=== PATIENT | female | born 1970 | race Caucasian/White ===

== ENCOUNTER 2024-01-24 08:26 | Emergency (ER) | payer OTHER ==
--- OUTSIDE RECORDS SUMMARY | 2024-01-24 08:30 | XMS REPORT | Continuity of Care Document ---
Author Name Unknown Address [address] [facility] [address] [place] [address] [facility] thconnect Address [address] [facility] [address] [place] [address] Care Team Providers Care Special Inspector Name Role Phone ETELVINA KIMBALL Attending Clinician Unavailable Elsa Attending Clinician Unavailable ADI Attending Clinician Unavailable JENNIE PHAN Attending Clinician Unavailab ALIE Dominguez Attending Clinician Un available SORAIDA ARBOLEDA Attending Clinician Unavailable Saumya Attending Clinician Unavailable CAMILA CAVAZOS Attending Clinician Unavailable BRIEN CORBIN Attending Clinician Unavailable MARIO LI Attending Clinician Unavailable NIRALI ZALDIVAR Attending Clinician Unavail able ALEX LALA Attending Clinician Unavailable HARISH NEUMANN Attending Clinician Unavailable JOI PEREA Attending Clinician Unavailable WILBERTO PATEL Attending Clinician DENISHA Germain Attending Clinician Unavailable ANANT PEARCE Attending Clinician Unavailchapito Hunter Admitting Clinician Unavailable ADI Admitting Clinician Unavailable Kody_Humphrey Admitting Clinician Unavailable Payers Payer Name Policy Type Policy Number Effective Date Expirati on Date Source [facility] [id number] 2021 00:00:00 [employer] - DUAL COMPLETE (MEDICARE REPLACEMENT/ADVANTA GE - HMO) [id number] 2023 00:00:00 [employer] [id number] 2023 00:00:00 [facility] (MEDICAID HMO) [id number] 2015-07-25 00:00:00 Problems Condition Name Condition Details Condition Category Status Onset Date Resolution Date Last Treatment Date Treating Clinician Comments Source Hyperlipid emia Hyperlipid emia Problem Active 10-23 00:00: 00 [facility] Anemia Anemia Problem Active 10-23 00:00: 00 [facility] Hypertensi ve disorder Hypertensi ve Disorder Problem Active 10-23 00:00: 00 [facility] Hiatal hernia Hiatal Hernia Problem Active 10-23 00:00: 00 [facility] History of peptic ulcer History of Peptic Ulcer Problem Active 10-23 00:00: 00 [facility] Attention deficit hyperactiv ity disorder, predominan tly inattentiv e type Attention Deficit Hyperactiv ity Disorder, Predominan tly Inattentiv e Type Problem Active 10-23 00:00: [address] [facility] Chronic hepatitis C Chronic Hepatitis C Problem Active 10-23 00:00: [address] [facility] Hypoglycem ia Hypoglycem ia Problem Active 10-23 00:00: [address] [facility] History of adenomatou s polyp of colon History of Adenomatou s Polyp of Colon Problem Active 11-04 00:00: [address] [facility] Tinnitus Tinnitus Problem Active [facility] Scalp psoriasis Scalp Psoriasis Problem Active [facility] Chronic low back pain Chronic Low Back Pain Problem Active [facility] Dizziness Dizziness Problem Active [facility] Headache Headache Problem Active [facility] Dysuria Dysuria Problem Active [facility] Bipolar disorder Bipolar Disorder Problem Active [facility] Anxiety Anxiety Problem Active [facility] Attention deficit hyperactiv ity disorder Attention Deficit Hyperactiv ity Disorder [facility] Chronic mastoiditi s Chronic Mastoiditi s Problem [facility] Mastoiditi s Mastoiditi s Problem Active [facility] Perforatio n of tympanic membrane Perforatio n of Tympanic Membrane [facility] Social History Smoking Status Start Date Stop Date Source Current Every Day Smoker [facility] Heavy Tobacco [facility] Medications Ordered Medication Name Filled Medication Name Start Date Stop Date Current Medication? Ordering Clinician Indication Dosage Frequency Signature (SIG) Comments Components Source hydrocodone 10 mg-acetamin ophen 325 mg tablet hydrocodone 10 mg-acetamin ophen 325 mg tablet 12-25 00:00: 00 No hydrocodon e 10 mg-acetami nophen 325 mg tablet [facility] carisoprodo l 350 mg tablet carisoprodo l 350 mg tablet No carisoprod ol 350 mg tablet [facility] diazepam 10 mg tablet diazepam 10 mg tablet No diazepam 10 mg tablet [facility] Flonase Allergy Relief 50 mcg/actuati on nasal spray,suspe nsion [place] 1 spray every day by intranasal route. Flonase Allergy Relief 50 mcg/actuati on nasal spray,suspe nsion [place] 1 spray every day by intranasal route. No 1spray( s) Q1D Flonase Allergy Relief 50 mcg/actuat ion nasal spray,susp ension [place] 1 spray every day by intranasal route. [facility] pantoprazol e 40 mg tablet,edmond yed release pantoprazol e 40 mg tablet,edmond yed release No pantoprazo le 40 mg tablet,del ayed release [facility] propranolol 10 mg tablet TK 1 T PO BID propranolol 10 mg tablet TK 1 T PO BID No propranolo l 10 mg tablet TK 1 T PO BID [facility] venlafaxine ER 75 mg capsule,ext ended release 24 hr TK ONE C PO QD venlafaxine ER 75 mg capsule,ext ended release 24 hr TK ONE C PO QD No venlafaxin e ER 75 mg capsule,ex tended release 24 hr TK ONE C PO QD [facility] Adderall Adderall No Adderall [facility] fenofibrate 54 mg tablet TAKE 1 TABLET BY MOUTH EVERY DAY IN THE MORNING FOR 90 DAYS, FOR LIPIDS. fenofibrate 54 mg tablet TAKE 1 TABLET BY MOUTH EVERY DAY IN THE MORNING FOR 90 DAYS, FOR LIPIDS. No fenofibrat e 54 mg tablet TAKE 1 TABLET BY MOUTH EVERY DAY IN THE MORNING FOR 90 DAYS, FOR LIPIDS. [facility] hydrocodone 5 mg-acetamin ophen 325 mg tablet TAKE 1 TABLET BY MOUTH EVERY 12 HOURS NEEDED FOR 30 DAYS hydrocodone 5 mg-acetamin ophen 325 mg tablet TAKE 1 TABLET BY MOUTH EVERY 12 HOURS NEEDED FOR 30 DAYS No hydrocodon e 5 mg-acetami nophen 325 mg tablet TAKE 1 TABLET BY MOUTH EVERY 12 HOURS NEEDED FOR 30 DAYS [facility] pantoprazol e pantoprazol e No pantoprazo le [facility] Epclusa 400 mg-100 mg tablet Take 1 tablet every day by oral route for 28 days. Epclusa 400 mg-100 mg tablet Take 1 tablet every day by oral route for 28 days. No Epclusa 400 mg-100 mg tablet Take 1 tablet every day by oral route for 28 days. [facility] Mavyret 100 mg-40 mg tablet Take 3 tablets every day by oral route for 28 days. Mavyret 100 mg-40 mg tablet Take 3 tablets every day by oral route for 28 days. No 3 Q1D Mavyret 100 mg-40 mg tablet Take 3 tablets every day by oral route for 28 days. [facility] Vital Signs Vital Name Observation Time Observation Value Comments S ource BMI (Body Mass Index) 2023-10-24 00:00:00 20.2 kg/m2 [facility] Height 2023-10-24 00:00:00 59 [in_i] [facility] BP Systolic 2023-10-24 00:00:00 147 mm[Hg] [facility] Body Weight 2023-10-24 00:00:00 99.8 [lb_av] [facility] BP Diastolic 2023-10-24 00:00:00 89 mm[Hg] [facility] BP Diastolic 2020-12-25 00:00:00 76 mm[Hg] [facility] Height 2020-12-25 00:00:00 59.5 [in_i] [facility] BMI (Body Mass Index) 2020-12-25 00:00:00 21.2 kg/m2 [facility] BP Systolic 2020-12-25 00:00:00 129 mm[Hg] [facility] Body Weight 2020-12-25 00:00:00 106.9 [lb_av] [facility] Procedures Procedure Date / Time Performed Performing Clinicia n Source Colonoscopy 2020-09-07 00:00:00 [facility] Caesarean Section 1997-07-25 00:00:00 [facility] Caesarean Section 1988-07-25 00:00:00 [facility] Tonsillectomy [facility] Section [place] [facility] Plan of Care Planned Activity Planned Date Details Comments Source Diagnostic Test Pending 2023-10-24 00:00:00 CBC w/ auto diff [code = CBC w/ auto diff] [facility] Diagnostic Test Pending 2023-10-24 00:00:00 CMP, serum or plasma [code = CMP, serum or plasma] [facility] Diagnostic Test Pending 2023-10-24 00:00:00 HBsAg (hepatitis B surface Ag), EIA, serum [code = HBsAg (hepatitis B surface Ag), EIA, serum] [facility] Diagnostic Test Pending 2023-10-24 00:00:00 hepatitis C virus RNA, quant, PCR, serum or plasma [code = hepatitis C virus RNA, quant, PCR, serum or plasma] [facility] Diagnostic Test Pending 2023-10-24 00:00:00 hepatitis A virus Ab, qualitative, immunoassay, serum [code = hepatitis A virus Ab, qualitative, immunoassay, serum] [facility] Diagnostic Test Pending 2023-10-24 00:00:00 hepatitis B surface Ab, quantitative, serum [code = hepatitis B surface Ab, quantitative, serum] [facility] Diagnostic Test Pending 2023-10-24 00:00:00 HIV 2 Ab, QN, serum [code = HIV 2 Ab, QN, serum] [facility] Encounters Start Date/Time End Date/Time Encounter Type Admission Type Attending Clinicians Care Facility Care Department Encounter ID Source 2023-12-02 13:00:00 Inpatient ETELVINA COLLINS [facility] [id number] [facility] 2023-11-15 10:30:00 Inpatient FRANCESCO KIMBALL ETELVINA [facility] [id number] [facility] 2022-05-11 08:16:13 Outpatient [facility] [id number] [facility] 2023-10-26 00:00:00 2023-10-26 00:00:00 Outpatient Ferguson_Ro bin [facility] [id number] [facility] 2023-10-24 00:00:00 2023-10-24 00:00:00 Zack Deshpande MD: [address], [place] [address] , Ph. [facility] [place] [facility] [place] [facility] [id number] [facility] 2023-10-17 00:00:00 2023-10-17 00:00:00 Outpatient FERGUSON_JO HN [facility] [id number] [facility] 2023-10-05 15:25:00 2023-10-05 15:25:00 Outpatient FRANCESCO HERNANDEZLOLY ETELVINA [facility] [id number] [facility] 2022-02-17 00:00:00 2022-02-17 00:00:00 Outpatient FERGUSON_JO HN [facility] [id number] [facility] 2022-02-14 10:36:00 2022-02-14 12:40:00 Emergency ER JENNIE PHAN [facility] [id number] [facility] 2021-10-21 07:10:00 2021-10-21 15:20:00 Outpatient ALIE MERCHANT [facility] [id number] [facility] 2021-07-11 20:30:00 2021-07-11 21:40:00 Emergency ER SORAIDA [facility] [id number] [facility] 2020-12-25 11:58:00 2020-12-25 11:58:00 Outpatient Yan_W [facility] [id number] [facility] 2020-12-25 11:58:00 2020-12-25 11:58:00 Outpatient Yan_W MMG [facility] [id number] [facility] 2020-12-25 00:00:00 2020-12-25 00:00:00 Khari Gates MD: [address], [address], [place] [address] , Ph. MMG [facility] [place] - Otolaryngol ogy-MOB [id number] [facility] 2020-06-03 05:58:00 2020-06-03 05:58:00 Outpatient Yan_W MMG [facility] [id number] [facility] 2020-06-03 05:58:00 2020-06-03 05:58:00 Outpatient Yan_W MMG [facility] [id number] [facility] 2020-06-03 05:58:00 2020-06-03 05:58:00 Outpatient Yan_W MMG [facility] [id number] [facility] 2020-06-03 05:58:00 2020-06-03 05:58:00 Outpatient Yan_W MMG [facility] [id number] [facility] 2020-03-16 17:34:00 2020-03-16 19:25:00 Emergency ER CAMILA CAVAZOS [facility] [id number] [facility] 2020-03-13 11:51:00 2020-03-13 11:51:00 Outpatient Yan_W MMG [facility] [id number] [facility] 2020-03-13 11:51:00 2020-03-13 11:51:00 Outpatient Yan_W MM[facility] [id number] [facility] 2020-03-10 02:00:00 2020-03-10 02:00:00 Outpatient Yan_W MMG [facility] [id number] [facility] 2018-11-01 14:57:00 2018-11-01 18:50:00 Emergency ER BRIEN CORBIN [facility] [id number] [facility] 2018-06-06 22:14:00 2018-06-06 23:26:00 Emergency ER MARIO LI [facility] [id number] [facility] 2017-12-06 11:41:00 2017-12-06 14:24:00 Emergency ER NIRALI ZALDIVAR [facility] [id number] [facility] 2017-07-17 14:56:00 2017-07-17 16:38:00 Emergency ER NIRALI ZALDIVAR [facility] [id number] [facility] 2016-12-30 17:49:00 2016-12-30 19:06:00 Emergency ER BRIEN CORBIN [facility] [id number] [facility] 2016-09-08 15:02:00 2016-09-08 15:02:00 Outpatient ETELVINA COLLINS [facility] [id number] [facility] 2016-09-06 18:17:00 2016-09-06 19:55:00 Emergency ER MARIO LI [facility] [id number] [facility] 2016-05-05 17:00:00 2016-05-05 18:42:00 Emergency ER BRIEN CORBIN [facility] [id number] [facility] 2015-02-14 11:21:00 2015-02-14 11:21:00 Outpatient ALEX MONREAL [facility] [id number] [facility] 2014-10-28 19:39:00 2014-10-28 20:40:00 Emergency ER THIEN, HARISH [facility] [id number] [facility] 2014-08-17 12:42:00 2014-08-17 13:47:00 Emergency ER JOI PEREA [facility] [id number] [facility] 2014-03-14 13:41:00 2014-03-14 14:30:00 Emergency ER THIEN, HARISH [facility] [id number] [facility] 2004-01-23 20:52:00 2004-01-23 23:55:00 Emergency ER IMMARAJOI FernandoSWARUP [facility] [id number] [facility] 2004-01-13 18:05:00 2004-01-13 18:40:00 Emergency ER MERE, DENISHA [facility] [id number] [facility] 2003-12-11 15:12:00 2003-12-11 17:20:00 Emergency ER MERE, DENISHA [facility] [id number] [facility] 2002-10-09 08:50:00 2002-10-09 11:00:00 Emergency ER PORTIAANANT ADAN [facility] [id number] [facility] Results Test Description Test Time Test Comments Results Result Co mments Source [facility]2024-04-04 00:00:00* Test Item Value Reference Range Interpretation Comme nts Report (test code = 83988-6) note Interpretation and review of laboratory results (test code = 63310-4) . [facility] [Units/volume] (viral load) in Serum or Plasma by ANGELITO with probe [id number] 00:00:00* Test Item Value Reference Range Interpretation Comme nts Hepatitis C virus RNA [Units/volume] (viral load) in Serum or Plasma by ANGELITO with probe detection (test code = 93279-9) 7854986 IU/mL Hepatitis C virus RNA [log units/volume] (viral load) in Serum or Plasma by ANGELITO with probe detection (test code = 94495-2) 6.908 log10 IU/mL Laboratory comment [Text] in Report Narrative (test code = 29062-5) comment Hepatitis C virus genotype [Identifier] in Serum or Plasma by ANGELITO with probe detection (test code = 91294-2) 3 Report (test code = 65081-1) . [facility] - [facility] 2023-10-25 00:00:00* Test Item Value Reference Range Interpretation Comme nts Leukocytes [#/volume] in Blo od by Automated count (test code = 6690-2) 10.0 x10e3/uL 3.4-10.8 Erythrocytes [#/volume] in Blood by Automated count (test code = 789-8) 5.00 x10e6/uL 3.77-5.28 Hemoglobin [Mass/volume] in Blood (test code = 718-7) 15.3 g/dL 11.1-15.9 Hematocrit [Volume Fraction] of Blood by Automated count (test code = 4544-3) 45.8 % 34.0-46.6 MCV [Entitic volume] by Automated count (test code = 787-2) 92 fL 79-97 MCH [Entitic mass] by Automa portia count (test code = 785-6) 30.6 pg 26.6-33.0 MCHC [Mass/volume] by Automa portia count (test code = 786-4) 33.4 g/dL 31.5-35.7 Erythrocyte distribution wid th [Ratio] by Automated count (test code = 788-0) 12.9 % 11.7-15.4 Platelets [#/volume] in Bloo d by Automated count (test code = 777-3) 173 x10e3/uL 150-450 Neutrophils/100 leukocytes i n Blood by Automated count (test code = 770-8) 63 % not estab. Lymphocytes/100 leukocytes i n Blood by Automated count (test code = 736-9) 26 % not estab. Monocytes/100 leukocytes in Blood by Automated count (test code = 5905-5) 9 % not estab. Eosinophils/100 leukocytes i n Blood by Automated count (test code = 713-8) 1 % not estab. Basophils/100 leukocytes in Blood by Automated count (test code = 706-2) 1 % not estab. immature cells (test code = immature cells) manpower development advisor Neutrophils [#/volume] in Bl ood by Automated count (test code = 751-8) 6.3 x10e3/uL 1.4-7.0 Lymphocytes [#/volume] in Bl ood by Automated count (test code = 731-0) 2.6 x10e3/uL 0.7-3.1 Monocytes [#/volume] in Bloo d by Automated count (test code = 742-7) 0.9 x10e3/uL 0.1-0.9 Eosinophils [#/volume] in Bl ood by Automated count (test code = 711-2) 0.1 x10e3/uL 0.0-0.4 Basophils [#/volume] in Bloo d by Automated count (test code = 704-7) 0.1 x10e3/uL 0.0-0.2 Immature granulocytes/100 leukocytes in Blood by Automated count (test code = 92356-7) 0 % not estab. Immature granulocytes [#/volume] in Blood by Automated count (test code = 32397-7) 0.0 x10e3/uL 0.0-0.1 Nucleated erythrocytes/100 leukocytes [Ratio] in Blood by Automated count (test code = 51850-1) manpower development advisor Morphology [Interpretation] in Blood Narrative (test code = 06800-8) manpower development advisor [facility] 2000 panel - Serum or [id number] 00:00:00* Test Item Value Reference Range Interpretation Comme nts Glucose [Mass/volume] in Ser um or Plasma (test code = 2345-7) 62 mg/dL 70-99 L Urea nitrogen [Mass/volume] in Serum or Plasma (test code = 3094-0) 10 mg/dL 6-24 Creatinine [Mass/volume] in Serum or Plasma (test code = 2160-0) 1.38 mg/dL 0.57-1.00 H Glomerular filtration rate/1.73 sq M.predicted [Volume Rate/Area] in Serum, Plasma or Blood by Creatinine-based formula (CKD-EPI 2020) (test code = 37913-9) 46 mL/min/1.73 >59 L Urea nitrogen/Creatinine [Ma ss Ratio] in Serum or Plasma (test code = 3097-3) 7 9-23 L Sodium [Moles/volume] in Ser um or Plasma (test code = 2951-2) 140 mmol/L 134-144 Potassium [Moles/volume] in Serum or Plasma (test code = 2823-3) 4.3 mmol/L 3.5-5.2 Chloride [Moles/volume] in Serum or Plasma (test code = 2075-0) 101 mmol/L 96-106 Carbon dioxide, total [Moles/volume] in Serum or Plasma (test code = 2028-9) 28 mmol/L 20-29 Calcium [Mass/volume] in Ser um or Plasma (test code = 11624-7) 9.5 mg/dL 8.7-10.2 Protein [Mass/volume] in Ser um or Plasma (test code = 2885-2) 7.0 g/dL 6.0-8.5 Albumin [Mass/volume] in Ser um or Plasma (test code = 1751-7) 4.4 g/dL 3.8-4.9 Globulin [Mass/volume] in Serum by calculation (test code = 54171-1) 2.6 g/dL 1.5-4.5 Albumin/Globulin [Mass Ratio ] in Serum or Plasma (test code = 1759-0) 1.7 1.2-2.2 Bilirubin.total [Mass/volume ] in Serum or Plasma (test code = 1975-2) 0.2 mg/dL 0.0-1.2 Alkaline phosphatase [Enzymatic activity/volume] in Serum or Plasma (test code = 6768-6) 102 IU/L 44-121 Aspartate aminotransferase [Enzymatic activity/volume] in Serum or Plasma (test code = 1920-8) 64 IU/L 0-40 H Alanine aminotransferase [Enzymatic activity/volume] in Serum or Plasma (test code = 1742-6) 57 IU/L 0-32 [facility] surface Ab [Units/volume] in [id number] 00:00:00* Test Item Value Reference Range Interpretation Comme nts Hepatitis B virus surface Ab [Units/volume] in Serum (test code = 59722-5) <3.1 See_Comment L [Automated message] The system which generated this result transmitted reference range: immunity>9.9. The reference range was not used to interpret this result as normal/abnormal. [facility] virus surface Ag [Presence] in Serum or Plasma by [id number] 00:00:00* Test Item Value Reference Range Interpretation Comme nts Hepatitis B virus surface Ag [Presence] in Serum or Plasma by Immunoassay (test code = 5196-1) negative negative [facility] ProgramHepatitis A virus Ab [Presence] in Serum by [id number] 00:00:00* Test Item Value Reference Range Interpretation Comme nts Hepatitis A virus Ab [Presen ce] in Serum by Immunoassay (test code = 88149-9) negative negative [facility]
[2024-01-24 09:36] LABS: SARS-CoV-2 Antigen CONTROL BLUE LINE VIS/BG OK
[2024-01-24 09:37] LABS: SARS-CoV-2 Antigen Rapid Res Positive (Negative)
--- NOTE | 2024-01-24 09:39 | ER ---
Nurse's Notes [facility] Name: Ju Weaver Age: 53 yrs Sex: Female : 1970 Arrival Date: 01/24/2024 Time: 08:26 Bed 29 Private MD: Diagnosis: SARS-associated coronavirus as the cause of diseases classified elsewhere Presentation: 01/23 08:38 Chief complaint: Patient states: she has been having cough, shortness of breath for ap3 approx a week after being around COVID positive people. Coronavirus screen: Client presents with at least one sign or symptom that may indicate coronavirus-19. Ebola Screen: No symptoms or risks identified at this time. Initial Sepsis Screen: Does the patient meet any 2 criteria? No. Patient's initial sepsis screen is negative. Does the patient have a suspected source of infection? No. Patient's initial sepsis screen is negative. Risk Assessment: Do you want to hurt yourself or someone else? Patient reports no desire to harm self or others. Onset of symptoms is unknown. 08:38 Method Of Arrival: Ambulatory ap3 08:38 Acuity: JANINA 4 ap3 Triage Assessment: 08:40 General: Appears in no apparent distress. Behavior is calm, cooperative, appropriate ap3 for age, Reports fatigue for. Pain: Complains of pain in generalized body aches. Neuro: Level of Consciousness is awake, alert, obeys commands, Oriented to person, place, time, situation, Appropriate for age. Cardiovascular: Patient's skin is warm and dry. Respiratory: Reports cough that is Airway is patent Respiratory effort is even, unlabored, Respiratory pattern is regular, symmetrical. 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 - Infectious Disease History:: Denies. - Social history:: Smoking status: Patient reports the use of cigarette tobacco products, smokes one-half pack cigarettes per day. Screenin:40 [facility] ED Fall Risk Assessment (Adult) History of falling in the last 3 months, ap3 including since admission No falls in past 3 months (0 pts) Confusion or Disorientation No (0 pts) Intoxicated or Sedated No (0 pts) Impaired Gait No (0 pts) Mobility Assist Device Used No (0 pt) Altered Elimination No (0 pt) Score/Fall Risk Level 0 - 2 = Low Risk Oriented to surroundings, Maintained a safe environment, Educated pt \T\ family on fall prevention, incl call for assistance when getting out of bed, Assessed \T\ reinforced patient's understanding of fall precautions, Provided non-skid footwear, Hourly rounding (assess needs \T\ fall precautionary measures) done, Used ambulatory aids as needed (educated on \T\ assisted with), Used gait belt as appropriate. Abuse screen: Denies threats or abuse. Nutritional screening: No deficits noted. Tuberculosis screening: No symptoms or risk factors identified. Vital Signs: 08:38 BP 118 / 89; Pulse 69; Resp 18; Temp 98.1; Pulse Ox 100% ; Weight 48.08 kg; ap3 ED Course: 08:27 Patient arrived in ED. im 08:37 Margareth Joseph MD is Attending Physician. sp3 08:40 Triage completed. ap3 08:41 Arm band placed on right wrist. ap3 09:50 Susan Preciado RN is Primary Nurse. ap3 09:50 Patient has correct armband on for positive identification. Provided Education on: ap3 discharge instructions. 09:50 No provider procedures requiring assistance completed. Patient did not have IV access ap3 during this emergency room visit. Administered Medications: No medications were administered Medication: 09:50 VIS not applicable for this client. ap3 Outcome: 09:38 Discharge ordered by . sp3 09:50 Discharged to home ambulatory, ap3 09:50 Condition: good 09:50 Discharge instructions given to patient, Instructed on discharge instructions, follow up and referral plans. Demonstrated understanding of instructions, follow-up care, 09:51 Patient left the ED. ap3 Signatures: Susan Preciado RN RN ap3 Margareth Joseph MD MD sp3 Ashley Nowak im
--- NOTE | 2024-01-24 09:39 | EDPHYS ---
Physician Documentation [facility] Name: Ju Weaver Age: 53 yrs Sex: Female : 1970 Arrival Date: 01/24/2024 Time: 08:26 Bed 29 Private MD: ED Physician Margareth Joseph HPI: 01/23 09:34 This 53 yrs old Female presents to ER via Ambulatory with complaints of COVID test. sp3 09:34 53-year-old female with history of ADHD presents to the ED after COVID-19 exposure with sp3 family member complains of mild cough. Exposure occurred 1 week ago. No other symptoms reported including fever, rhinorrhea, productive cough, back pain, chest pain, shortness of breath, abdominal pain, nausea, vomiting, diarrhea, rash, syncope, near syncope, or any other signs or symptoms on ROS at this time.. 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 - Infectious Disease History:: Denies. - Social history:: Smoking status: Patient reports the use of cigarette tobacco products, smokes one-half pack cigarettes per day. ROS: 09:35 Constitutional: Negative for fever, chills, and weight loss, Eyes: Negative for injury, sp3 pain, redness, and discharge, Neck: Negative for injury, pain, and swelling, Cardiovascular: Negative for chest pain, palpitations, and edema, Abdomen/GI: Negative for abdominal pain, nausea, vomiting, diarrhea, and constipation, Back: Negative for injury and pain, MS/Extremity: Negative for injury and deformity, Skin: Negative for injury, rash, and discoloration, Neuro: Negative for headache, weakness, numbness, tingling, and seizure, 09:35 All other systems are negative, Exam: 09:35 Constitutional: This is a well developed, well nourished patient who is awake, alert, sp3 and in no acute distress. Head/Face: Normocephalic, atraumatic. Eyes: Pupils equal round and reactive to light, extra-ocular motions intact. Lids and lashes normal. Conjunctiva and sclera are non-icteric and not injected. Cornea within normal limits. Periorbital areas with no swelling, redness, or edema. ENT: Nares patent. No nasal discharge, no septal abnormalities noted. External auditory canals are clear. Oropharynx with no redness, swelling, or masses, exudates, or evidence of obstruction, uvula midline. Mucous membranes moist. Neck: Trachea midline, no thyromegaly or masses palpated, and no cervical lymphadenopathy. Supple, full range of motion without nuchal rigidity, or vertebral point tenderness. No Meningismus. Chest/axilla: Normal chest wall appearance and motion. Nontender with no deformity. No lesions are appreciated. Cardiovascular: Regular rate and rhythm with a normal S1 and S2. No gallops, murmurs, or rubs. Normal PMI, no JVD. No pulse deficits. Abdomen/GI: Soft, non-tender, with normal bowel sounds. No distension or tympany. No guarding or rebound. No evidence of tenderness throughout. Back: No spinal tenderness. No costovertebral tenderness. Full range of motion. Skin: Warm, dry with normal turgor. Normal color with no rashes, no lesions, and no evidence of cellulitis. MS/ Extremity: Pulses equal, no cyanosis. Neurovascular intact. Full, normal range of motion. Neuro: Awake and alert, GCS 15, oriented to person, place, time, and situation. Cranial nerves II-XII grossly intact. Motor strength 5/5 in all extremities. Sensory grossly intact. Cerebellar exam normal. Normal gait. Psych: Awake, alert, with orientation to person, place and time. Behavior, mood, and affect are within normal limits. 09:35 Respiratory: Dry cough with no significant symptoms., Vital Signs: 08:38 BP 118 / 89; Pulse 69; Resp 18; Temp 98.1; Pulse Ox 100% ; Weight 48.08 kg; ap3 MDM: 08:45 Patient medically screened. sp3 09:35 Data reviewed: vital signs, nurses notes, lab test result(s). ED course: 53-year-old sp3 female with cough and COVID-19 exposure. Differential diagnosis includes viral illness, COVID-19, influenza, among others. Clinically ruled out sepsis, shock any other critical illness. Disposition pending workup and patient course.. 01/23 08:35 Order name: Strep ap3 01/23 08:35 Order name: SARS RAPID ap3 01/23 08:35 Order name: Flu ap3 01/23 09:06 Order name: Throat Culture EDMS Administered Medications: No medications were administered Disposition Summary: 01/24/24 09:38 Discharge Ordered Notes: Location: Home sp3 Condition: Stable sp3 Diagnosis - SARS-associated coronavirus as the cause of diseases classified elsewhere sp3 Followup: sp3 - With: Private Physician - When: Upon discharge from the Emergency Department - Reason: Continuance of care Discharge Instructions: - Discharge Summary Sheet sp3 - COVID-19 sp3 - 10 Things You Can Do to Manage Your COVID-19 Symptoms at Home - [facility] [place] (02/06/2021) sp3 Forms: - Medication Reconciliation Form sp3 - Antibiotic Education sp3 - Prescription Opioid Use sp3 - Patient Portal Instructions sp3 - Leadership Thank You Letter sp3 Signatures: Dispatcher [employer] Susan Rosen RN RN ap3 Margareth Joseph MD MD sp3
[2024-01-24 10:17] VITALS: BP 118/89; TEMP 98.1; O2SAT 100
== END 2024-01-24 09:51 | disposition home or self-care (01) ==
LOC: ER 08:26
DX: U07.1 COVID-19 (principal); F17.210 Nicotine dependence, cigarettes, uncomplicated
CPT/HCPCS: 36415; 87070; 87081; 87804; 87811

== ENCOUNTER 2024-01-30 21:02 | Emergency (ER) | payer OTHER ==
--- OUTSIDE RECORDS SUMMARY | 2024-01-30 21:08 | XMS REPORT | Continuity of Care Document ---
Author Name Unknown Address [address] [facility] [place] [address] [facility] Address [address] [facility] [address] [place] [address] Care Team Providers Care Compressor Repairer Name Role Phone ETELVINA KIMBALL Attending Clinician Unavailable Elsa Attending Clinician Unavailable ADI Attending Clinician Unavailable JENNIE PHAN Attending Clinician Unavailab SORAIDA Selby Attending Clinician Unavailable Yan_W Attending Clinician Unavailable CAMILA CAVAZOS Attending Clinician Unavailable BRIEN CORBIN Attending Clinician Unavailable MARIO LI Attending Clinician Unavailable NIRALI ZALDIVAR Attending Clinician Unavail able ALEX LALA Attending Clinician Unavailable HARISH NEUMANN Attending Clinician Unavailable JOI PEREA Attending Clinician Unavailable WILBERTO PATEL Attending Clinician DENISHA Germain Attending Clinician Unavailable ANANT PEARCE Attending Clinician Unavailchapito Hunter Admitting Clinician Unavailable ADI Admitting Clinician Unavailable Yan_W Admitting Clinician Unavailable Payers Payer Name Policy Type Policy Number Effective Date Expirati on Date Source [facility] [id number] 2021 00:00:00 [employer] - DUAL COMPLETE (MEDICARE REPLACEMENT/ADVANTA GE - HMO) [id number] 2023 00:00:00 [employer] [id number] 2023 00:00:00 [facility] STAR PLUS (MEDICAID HMO) [id number] 2015-07-25 00:00:00 Problems Condition Name Condition Details Condition Category Status Onset Date Resolution Date Last Treatment Date Treating Clinician Comments Source Anemia Anemia Problem Active 10-23 00:00: 00 [facility] Chronic hepatitis C Chronic Hepatitis C Problem Active 10-23 00:00: 00 [facility] Hypoglycem ia Hypoglycem ia Problem Active 10-23 00:00: 00 [facility] Hyperlipid emia Hyperlipid emia Problem Active 10-23 00:00: 00 [facility] History of adenomatou s polyp of colon History of Adenomatou s Polyp of Colon Problem Active 11-04 00:00: 00 [facility] Chronic low back pain Chronic Low Back Pain Problem Active [facility] Dizziness Dizziness Problem Active [facility] Headache Headache Problem Active [facility] Dysuria Dysuria Problem Active [facility] Bipolar disorder Bipolar Disorder Problem Active [facility] Anxiety Anxiety Problem Active [facility] Attention deficit hyperactiv ity disorder Attention Deficit Hyperactiv ity Disorder Problem Active [facility] Chronic mastoiditi s Chronic Mastoiditi s Problem Active [facility] Mastoiditi s Mastoiditi s Problem Active [facility] Perforatio n of tympanic membrane Perforatio n of Tympanic Membrane Problem Active [facility] Tinnitus Tinnitus Problem Active [facility] Otalgia Otalgia Problem Active [facility] Scalp psoriasis Scalp Psoriasis Problem Active [facility] Social History Smoking Status Start Date Stop Date Source Heavy Tobacco Smoker [facility] Current Every Day Smoker [facility] Medications Ordered Medication Name Filled Medication Name [...] tablet No carisoprod ol 350 mg tablet [facility] diazepam 10 mg tablet diazepam 10 mg tablet No diazepam 10 mg tablet [facility] Flonase Allergy Relief 50 mcg/actuati on nasal spray,suspe nsion [place] 1 spray every day by intranasal route. Flonase Allergy Relief 50 mcg/actuati on nasal spray,suspe nsion [place] 1 spray every day by intranasal route. No 1spray( s) Q1D Flonase Allergy Relief 50 mcg/actuat ion nasal spray,susp ension [place] 1 spray every day by intranasal route. [facility] pantoprazol e 40 mg tablet,edmond yed release pantoprazol e 40 mg tablet,edmond yed release No pantoprazo le 40 mg tablet,del ayed release [facility] propranolol 10 mg tablet TK 1 T PO BID propranolol 10 mg tablet TK 1 T PO BID No propranolo l 10 mg tablet TK 1 T PO BID [facility] venlafaxine ER 75 mg capsule,ext ended release 24 hr TK ONE C PO QD venlafaxine ER 75 mg capsule,ext ended release 24 hr TK ONE C PO QD No venlafaxin e ER 75 mg capsule,ex tended release 24 hr TK ONE C PO QD [facility] Adderall Adderall No Adderall [facility] fenofibrate 54 mg tablet TAKE 1 TABLET BY MOUTH EVERY DAY IN THE MORNING FOR 90 DAYS, FOR LIPIDS. fenofibrate 54 mg tablet TAKE 1 TABLET BY MOUTH EVERY DAY IN THE MORNING FOR 90 DAYS, FOR LIPIDS. No fenofibrat e 54 mg tablet TAKE 1 TABLET BY MOUTH EVERY DAY IN THE MORNING FOR 90 DAYS, FOR LIPIDS. [facility] hydrocodone 5 mg-acetamin ophen 325 mg tablet TAKE 1 TABLET BY MOUTH EVERY 12 HOURS NEEDED FOR 30 DAYS hydrocodone 5 mg-acetamin ophen 325 mg tablet TAKE 1 TABLET BY MOUTH EVERY 12 HOURS NEEDED FOR 30 DAYS No hydrocodon e 5 mg-acetami nophen 325 mg tablet TAKE 1 TABLET BY MOUTH EVERY 12 HOURS NEEDED FOR 30 DAYS [facility] pantoprazol e pantoprazol e No pantoprazo le [facility] Epclusa 400 mg-100 mg tablet Take 1 tablet every day by oral route for 28 days. Epclusa 400 mg-100 mg tablet Take 1 tablet every day by oral route for 28 days. No Epclusa 400 mg-100 mg tablet Take 1 tablet every day by oral route for 28 days. [facility] Mavyret 100 mg-40 mg tablet Take 3 tablets every day by oral route for 28 days. Mavyret 100 mg-40 mg tablet Take 3 tablets every day by oral route for 28 days. No 3 Q1D Mavyret 100 mg-40 mg tablet Take 3 tablets every day by oral route for 28 days. [facility] Vital Signs Vital Name Observation Time Observation Value Comments S ource BP Systolic 2023-10-24 00:00:00 147 mm[Hg] Tellez mary [facility] Body Weight 2023-10-24 00:00:00 99.8 [lb_av] Ma tagorda [facility] BP Diastolic 2023-10-24 00:00:00 89 mm[Hg] [facility] agoa [facility] BMI (Body Mass Index) 2023-10-24 00:00:00 20.2 kg/m2 [facility] Height 2023-10-24 00:00:00 59 [in_i] Ashley orda [facility] BP Diastolic 2020-12-25 00:00:00 76 mm[Hg] [facility] Height 2020-12-25 00:00:00 59.5 [in_i] [facility] BMI (Body Mass Index) 2020-12-25 00:00:00 21.2 kg/m2 [facility] BP Systolic 2020-12-25 00:00:00 129 mm[Hg] [facility] Body Weight 2020-12-25 00:00:00 106.9 [lb_av] [facility] Procedures Procedure Date / Time Performed Performing Clinicia n Source Colonoscopy 2020-09-07 00:00:00 Amanda padilla [facility] Caesarean Section 1997-07-25 00:00:00 [facility] Caesarean Section 1988-07-25 00:00:00 [facility] Tonsillectomy [facility] Plan of Care Planned Activity Planned Date Details Comments Source Diagnostic Test Pending 2023-10-24 00:00:00 CBC w/ auto diff [code = CBC w/ auto diff] [facility] Diagnostic Test Pending 2023-10-24 00:00:00 CMP, serum or plasma [code = CMP, serum or plasma] [facility] Diagnostic Test Pending 2023-10-24 00:00:00 HBsAg (hepatitis B surface Ag), EIA, serum [code = HBsAg (hepatitis B surface Ag), EIA, serum] [facility] Diagnostic Test Pending 2023-10-24 00:00:00 hepatitis C virus RNA, quant, PCR, serum or plasma [code = hepatitis C virus RNA, quant, PCR, serum or plasma] [facility] Diagnostic Test Pending 2023-10-24 00:00:00 hepatitis A virus Ab, qualitative, immunoassay, serum [code = hepatitis A virus Ab, qualitative, immunoassay, serum] [facility] Diagnostic Test Pending 2023-10-24 00:00:00 hepatitis B surface Ab, quantitative, serum [code = hepatitis B surface Ab, quantitative, serum] [facility] Diagnostic Test Pending 2023-10-24 00:00:00 HIV 2 Ab, QN, serum [code = HIV 2 Ab, QN, serum] [facility] Encounters Start Date/Time End Date/Time Encounter Type Admission Type Attending [facility] Care Department Encounter ID Source 2023-12-02 13:00:00 Inpatient ETELVINA COLLINS [facility] [id number] [facility] 2023-11-15 10:30:00 Inpatient ETELVINA COLLINS [facility] [id number] [facility] 2022-05-11 08:16:13 Outpatient [facility] [id number] [facility] 2023-10-26 00:00:00 2023-10-26 00:00:00 Outpatient Zenon [facility] [id number] [facility] 2023-10-24 00:00:00 2023-10-24 00:00:00 Zack Deshpande MD: [address], [place] [address] , Ph. Zenon leyva [facility] [id number] [facility] 2023-10-17 00:00:00 2023-10-17 00:00:00 Outpatient ANDRZEJ OROZCO [facility] [id number] [facility] 2023-10-05 15:25:00 2023-10-05 15:25:00 Outpatient FRANCESCO HERNANDEZETELVINA SALCIDO [facility] [id number] [facility] 2022-02-17 00:00:00 2022-02-17 00:00:00 Outpatient ANDRZEJ OROZCO [facility] [id number] [facility] 2022-02-14 10:36:00 2022-02-14 12:40:00 Emergency ER JENNIE PHAN [facility] [id number] [facility] 2021-07-11 20:30:00 2021-07-11 21:40:00 Emergency ER SORAIDA ARBOLEDA [facility] [id number] [facility] 2020-12-25 11:58:00 2020-12-25 11:58:00 Outpatient Yan_W [facility] [id number] [facility] 2020-12-25 11:58:00 2020-12-25 11:58:00 Outpatient Yan_W MM[facility] [id number] [facility] 2020-12-25 00:00:00 2020-12-25 00:00:00 Khari Gates MD: [address], [address], [place] [address] , Ph. MMG [facility]-MOB [id number] [facility] 2020-06-03 05:58:00 2020-06-03 05:58:00 Outpatient Yan_W MMG [facility] [id number] [facility] 2020-06-03 05:58:00 2020-06-03 05:58:00 Outpatient Yan_W MMG MMG [id number] [facility] 2020-06-03 05:58:00 2020-06-03 05:58:00 Outpatient Yan_W MMG MMG [id number] [facility] 2020-06-03 05:58:00 2020-06-03 05:58:00 Outpatient Yan_W MMG MMG [id number] 2020-03-16 17:34:00 2020-03-16 19:25:00 Emergency ER CAVAZOSCAMILA [facility] [id number] [facility] 2020-03-13 11:51:00 2020-03-13 11:51:00 Outpatient Yan_W [id number] [facility] 2020-03-13 11:51:00 2020-03-13 11:51:00 Outpatient Yan_W [facility]G [id number] [facility] 2020-03-10 02:00:00 2020-03-10 02:00:00 Outpatient Yan[facility]W [id number] 2018-11-01 14:57:00 2018-11-01 18:50:00 Emergency ER BRIEN CORBIN [facility] [id number] [facility] 2018-06-06 22:14:00 2018-06-06 23:26:00 Emergency ER MARIO LI [facility] [id number] [facility] 2017-12-06 11:41:00 2017-12-06 14:24:00 Emergency ER NIRALI ZALDIVAR [facility] [id number] [facility] 2017-07-17 14:56:00 2017-07-17 16:38:00 Emergency ER NIRALI ZALDIVAR [facility] [id number] [facility] 2016-12-30 17:49:00 2016-12-30 19:06:00 Emergency ER BRIEN CORBIN [facility] [id number] [facility] 2016-09-08 15:02:00 2016-09-08 15:02:00 Outpatient ETELVINA COLLINS [facility] [id number] [facility] 2016-09-06 18:17:00 2016-09-06 19:55:00 Emergency ER MARIO LI [facility] [id number] [facility] 2016-05-05 17:00:00 2016-05-05 18:42:00 Emergency ER BRIEN CORBIN [facility] [id number] [facility] 2015-02-14 11:21:00 2015-02-14 11:21:00 Outpatient ALEX MONREAL [facility] [id number] [facility] 2014-10-28 19:39:00 2014-10-28 20:40:00 Emergency ER THIEN, HARISH [facility] [id number] [facility] 2014-08-17 12:42:00 2014-08-17 13:47:00 Emergency ER JOI PEREA [facility] [id number] [facility] 2014-03-14 13:41:00 2014-03-14 14:30:00 Emergency ER BA, HARISH [facility] [id number] [facility] 2004-01-23 20:52:00 2004-01-23 23:55:00 Emergency ER IMMARAAbdullahi, PREMSWARUP [facility] [id number] [facility] 2004-01-13 18:05:00 2004-01-13 18:40:00 Emergency ER MERE DENISHA [facility] [id number] [facility] 2003-12-11 15:12:00 2003-12-11 17:20:00 Emergency ER DENISHA SEVERINO [facility] [id number] [facility] 2002-10-09 08:50:00 2002-10-09 11:00:00 Emergency ER ANANT PEARCE [facility] [id number] [facility] Results Test Description Test Time Test Comments Results Result Co mments Source [facility] [id number] 00:00:00* Test Item Value Reference Range Interpretation Comme nts Report (test code = 90688-8) note Interpretation and review of laboratory results (test code = 81354-3) . [facility]atitis C virus RNA [Units/volume] (viral load) in Serum or Plasma by ANGELITO with probe [id number] 00:00:00* Test Item Value Reference Range Interpretation Comme nts Hepatitis C virus RNA [Units/volume] (viral load) in Serum or Plasma by ANGELITO with probe detection (test code = 63062-0) 4613011 IU/mL Hepatitis C virus RNA [log units/volume] (viral load) in Serum or Plasma by ANGELITO with probe detection (test code = 78125-0) 6.908 log10 IU/mL Laboratory comment [Text] in Report Narrative (test code = 13161-5) comment Hepatitis C virus genotype [Identifier] in Serum or Plasma by ANGELITO with probe detection (test code = 81287-0) 3 Report (test code = 13753-5) . [facility] Auto Differential panel - Blood 2023-10-25 [...] immature cells (test code = immature cells) hod carrier Neutrophils [#/volume] in Bl ood by Automated [...] Blood by Automated count (test code = 05354-5) 0 % not estab. Immature granulocytes [#/volume] in Blood by Automated count (test code = 50628-5) 0.0 x10e3/uL 0.0-0.1 Nucleated erythrocytes/100 leukocytes [Ratio] in Blood by Automated count (test code = 95624-0) hod carrier Morphology [Interpretation] in Blood Narrative (test code = 34023-6) hod carrier [facility] 2000 panel - Serum or [id number] 00:00:00* Test Item Value Reference Range Interpretation [...] Creatinine-based formula (CKD-EPI 2020) (test code = 92647-4) 46 mL/min/1.73 >59 L Urea nitrogen/Creatinine [Ma [...] in Serum or Plasma (test code = 2027-9) 28 mmol/L 20-29 Calcium [Mass/volume] in Ser um or Plasma (test code = 92070-1) 9.5 mg/dL 8.7-10.2 Protein [Mass/volume] in Ser um or Plasma (test code = 2885-2) 7.0 g/dL 6.0-8.5 Albumin [Mass/volume] in Ser um or Plasma (test code = 1751-7) 4.4 g/dL 3.8-4.9 Globulin [Mass/volume] in Serum by calculation (test code = 52460-0) 2.6 g/dL 1.5-4.5 Albumin/Globulin [Mass Ratio ] [...] code = 1742-6) 57 IU/L 0-32 H [facility]atitis B virus surface Ab [Units/volume] in [id number] 00:00:00* Test Item Value Reference Range Interpretation Comme nts Hepatitis B virus surface Ab [Units/volume] in Serum (test code = 95322-5) <3.1 See_Comment L [Automated message] The system which generated this result transmitted reference range: immunity>9.9. The reference range was not used to interpret this result as normal/abnormal. [facility] ProgramHepatitis B virus surface Ag [Presence] in Serum or Plasma by [id number] 00:00:00* Test Item Value Reference Range Interpretation Comme nts Hepatitis B virus surface Ag [Presence] in Serum or Plasma by Immunoassay (test code = 5196-1) negative negative [facility] ProgramHepatitis A virus Ab [Presence] in Serum by [id number] 00:00:00* Test Item Value Reference Range Interpretation Comme nts Hepatitis A virus Ab [Presen ce] in Serum by Immunoassay (test code = 84291-1) negative negative [facility]
[2024-01-30] MEDS ORDERED: NA CHLORIDE 0.9% 1,000 ML ONE (22:05)
[2024-01-30] MEDS ORDERED: HYDROMORPHONE HCL 0.5 MG/0.5 ML INJ ONE (22:16)
[2024-01-30] MEDS ORDERED: ONDANSETRON 4 MG/2 ML VIAL ONE (22:16)
[2024-01-30 22:44] LABS: Albumin 3.6 g/dL (3.4-5.0); Anion Gap 5.5 mEq/L (5.0-15.0); Bilirubin Total 0.5 mg/dL (0.2-1.0); Globulin 3.6 g/dL (2.3-3.5); Potassium 3.5 mEq/L (3.5-5.1); Protein, Total 7.2 g/dL (6.4-8.2)
[2024-01-30 23:01] LABS: Urine Color Yellow (Yellow)
[2024-01-30 23:02] LABS: Urine Bilirubin NEGATIVE (Negative); Urine Blood Negative (Negative); Urine Clarity Extremely Turbid (Clear); Urine Glucose Negative (Negative); Urine Ketones Negative (Negative); Urine Microscopic Reflex YN ORDER UMIC; Urine Nitrite NEGATIVE (Negative); Urine Protein Trace (Negative); Urine Urobilinogen 3+ mg/dL (0.2-1.0)
[2024-01-30 23:03] LABS: Calcium Oxalate Crystals- Ur Many /HPF (None Seen); Sqamous Epithelial <5 /HPF (None Seen); Urine Bacteria 20-50 /HPF (<20); Urine Culture Reflex Order REFLEXED; Urine Mucus 3+ /HPF (None Seen); Urine RBC <5 /HPF (None Seen)
[2024-01-30] MEDS ORDERED: HYDROMORPHONE HCL 1 MG/ML INJ ONE (23:20)
[2024-01-30 23:47] LABS: Hematocrit 42.3 % (36.0-45.0); MCHC 33.1 g/dL (32.0-36.0); MCV 90.5 fL (80-100); RBC Red Blood Cell Count 4.68 M/uL (3.86-4.86)
[2024-01-30 23:48] LABS: Absolute Basophils 0.1 K/uL (0-0.5); Absolute Eosinophils 0.1 K/uL (0-0.5); Absolute Lymphocytes (CBC) 2.3 K/uL (0.7-4.9); Absolute Monocytes 1.2 K/uL (0.1-1.3); Absolute Neutrophil 7.4 K/uL (1.8-8.0); Basophils % 0.5 % (0-1.3); Eosinophils % 1.3 % (0-4.4); Lymphocytes % 20.7 % (15.3-44.8); MPV 10.8 fL (7.6-11.3); Monocytes % 11.1 % (3.3-12.3); Neutrophils % 66.4 % (41.7-73.7); Platelets 149 thou/uL (152-406); Red Cell Distribution Width 12.6 % (12.1-15.2)
[2024-01-31] MEDS ORDERED: CEFTRIAXONE 1000 MG/VIAL ONE (00:22)
--- NOTE | 2024-01-31 01:30 | EDPHYS ---
Physician Documentation [facility] Name: Ju Weaver Age: 53 yrs Sex: Female : 1970 Arrival Date: 01/30/2024 Time: 21:02 Bed 8 Private MD: ED Physician Margareth Joseph HPI: 01/29 22:26 This 53 yrs old Female presents to ER via Ambulatory with complaints of Abdominal Pain. sb4 22:26 The patient presents with abdominal pain in the periumbilical area. Onset: The sb4 symptoms/episode began/occurred 2 day(s) ago. The symptoms radiate to the left flank. Associated signs and symptoms: Pertinent positives: dysuria, covid. The patient has not experienced similar symptoms in the past. The patient has not recently seen a physician. Historical: - Allergies: 21:29 Morphine; as6 21:29 Fentanyl; as6 - PMHx: 21:29 ADD/ADHD; Back pain; as6 22:15 Hepatitis C; sb4 - PSHx: 21:29 section; Tonsillectomy; ear; as6 - Immunization history:: Adult Immunizations not up to date. - Infectious Disease History:: Denies. - Social history:: Smoking status: Patient reports the use of cigarette tobacco products, smokes one-half pack cigarettes per day. ROS: 22:26 Constitutional: Negative for fever, chills, and weight loss, sb4 22:26 Abdomen/GI: Positive for abdominal pain, 22:26 Back: Positive for flank pain, 22:26 : Positive for burning with urination, 22:26 All other systems are negative, Exam: 22:26 Head/Face: Normocephalic, atraumatic. Eyes: Extra-ocular motions intact. Periorbital sb4 areas with no swelling, redness, or edema. ENT: Mucous membranes moist. Cardiovascular: Regular rate and rhythm with a normal S1 and S2. Respiratory: Lungs have equal breath sounds bilaterally, clear to auscultation and percussion. No rales, rhonchi or wheezes noted. No increased work of breathing, no retractions or nasal flaring. 22:26 Constitutional: The patient appears alert, awake, obviously ill, uncomfortable, 22:26 Abdomen/GI: Inspection: abdomen appears normal, Bowel sounds: normal, Palpation: soft, moderate abdominal tenderness, in the umbilical area, Vital Signs: 21:28 BP 174 / 106; Pulse 86; Resp 18; Temp 97.5; Pulse Ox 100% ; Weight 48.08 kg; Height 4 as6 ft. 11 in. ; Pain 8/10; 23:15 BP 168 / 100; Pulse 52; Pulse Ox 100% on R/A; Pain 10/10; tm6 01/30 00:29 BP 159 / 95; Pulse 95; Pulse Ox 98% on R/A; MAP 112 mmHg; Pain 5/10; tm6 01:35 BP 148 / 88; Pulse 87; Resp 19; Temp 97.5(TE); Pulse Ox 99% on R/A; Pain 3/10; tm6 01/29 21:28 Body Mass Index 21.41 (48.08 kg, 149.86 cm) as6 01/29 21:28 Pain Scale: Adult as6 23:15 Pain Scale: Adult tm6 01/30 00:29 Pain Scale: Adult tm6 01:35 Pain Scale: Adult tm6 MDM: 01/29 21:45 Patient medically screened. sb4 01/30 01:29 Data reviewed: vital signs, nurses notes, lab test result(s), radiologic studies, I sb4 have discussed the patient's presentation/case with the attending Emergency Department Physician; and as a result, I will discharge patient. Counseling: I had a detailed discussion with the patient and/or guardian regarding the historical points, exam findings, and any diagnostic results supporting the discharge/admit diagnosis, lab results, radiology results, to return to the emergency department if symptoms worsen or persist or if there are any questions or concerns that arise at home. 01/29 21:47 Order name: CBC with Diff; Complete Time: 23:51 4 01/29 21:47 Order name: CMP; Complete Time: 22:53 sb4 01/29 21:47 Order name: Lipase; Complete Time: 22:53 4 01/29 21:47 Order name: Urinalysis w/ reflexes; Complete Time: 23:05 sb4 01/29 23:06 Order name: Urine Culture EDWV 01/29 21:47 Order name: CT Abd/Pelvis - IV Contrast Only 4 01/30 00:07 Order name: Abdomen Limited [facility] 01/29 21:47 Order name: IV Saline Lock; Complete Time: 22:00 sb4 01/29 21:47 Order name: Labs collected and sent; Complete Time: 22:00 sb4 Administered Medications: 01/29 22:11 Drug: NS 0.9% IV 1000 ml IV at 1 bolus Per protocol; 1000 mL bolus Route: IV; Rate: 1 jb4 bolus; Site: left antecubital; 22:20 Drug: HYDROmorphone IVP 0.5 mg IVP once Route: IVP; Site: left antecubital; tm6 22:21 Drug: Ondansetron IVP 4 mg IVP once; over 2 minutes Route: IVP; Site: left antecubital; tm6 23:24 Drug: HYDROmorphone IVP 1 mg IVP once Route: IVP; Site: right forearm; tm6 01/30 00:27 Drug: Rocephin IV 1 grams IV at calculated rate once; Given slow IV push per pharmacy tm6 instructions Route: IV; Rate: calculated rate; Site: left antecubital; Disposition Summary: 01/31/24 01:30 Discharge Ordered Notes: Location: Home sb4 Problem: new sb4 Symptoms: are unchanged sb4 Condition: Stable sb4 Diagnosis - Pyelonephritis acute sb4 - SARS-associated coronavirus as the cause of diseases classified elsewhere sb4 Followup: sb4 - With: Emergency Department - When: As needed - Reason: Trouble breathing, Worsening of condition Discharge Instructions: - Discharge Summary Sheet sb4 - 10 Things You Can Do to Manage Your COVID-19 Symptoms at Home - [facility] (02/06/2021) sb4 Forms: - Antibiotic Education sb4 - Patient Portal Instructions sb4 - Leadership Thank You Letter sb4 Prescriptions: - levofloxacin 500 mg Oral tablet - take 1 tablet ORAL route once daily for 7 days; 7 tablet; Refills: 0, Product sb4 Selection Permitted Signatures: Dispatcher [employer] James Jesus RN GREGOR jb4 Carlitos Bell RN RN as6 Mariangel Madrigal PA-C PA-C sb4 Sue Ledezma RN RN tm6 Corrections: (The following items were deleted from the chart) 00:07 00:07 Abdomen Limited+US.RAD.BRZ ordered. EDMS EDMS
--- NOTE | 2024-01-31 01:30 | ER ---
Nurse's Notes [facility] Name: Ju Weaver Age: 53 yrs Sex: Female : 1970 Arrival Date: 01/30/2024 Time: 21:02 Bed 8 Private MD: Diagnosis: Pyelonephritis acute;SARS-associated coronavirus as the cause of diseases classified elsewhere Presentation: 01/29 21:28 Chief complaint: Patient states: left sided flank pain and COVID +. Coronavirus screen: as6 At this time, the client does not indicate any symptoms associated with coronavirus-19. Ebola Screen: No symptoms or risks identified at this time. Initial Sepsis Screen: Does the patient meet any 2 criteria? No. Patient's initial sepsis screen is negative. Does the patient have a suspected source of infection? No. Patient's initial sepsis screen is negative. Risk Assessment: Do you want to hurt yourself or someone else? Patient reports no desire to harm self or others. Onset of symptoms was January 28, 2024. 21:28 Method Of Arrival: Ambulatory as6 21:28 Acuity: JANINA 3 as6 Historical: - Allergies: 21:29 Morphine; as6 21:29 Fentanyl; as6 - PMHx: 21:29 ADD/ADHD; Back pain; as6 22:15 Hepatitis C; sb4 - PSHx: 21:29 section; Tonsillectomy; ear; as6 - Immunization history:: Adult Immunizations not up to date. - Infectious Disease History:: Denies. - Social history:: Smoking status: Patient reports the use of cigarette tobacco products, smokes one-half pack cigarettes per day. Screenin:42 [facility] ED Fall Risk Assessment (Adult) History of falling in the last 3 months, tm6 including since admission No falls in past 3 months (0 pts) Confusion or Disorientation No (0 pts) Intoxicated or Sedated No (0 pts) Impaired Gait No (0 pts) Mobility Assist Device Used No (0 pt) Altered Elimination No (0 pt) Score/Fall Risk Level 0 - 2 = Low Risk Oriented to surroundings, Maintained a safe environment, Educated pt \T\ family on fall prevention, incl call for assistance when getting out of bed. Abuse screen: Denies threats or abuse. Denies injuries from another. Nutritional screening: No deficits noted. Tuberculosis screening: No symptoms or risk factors identified. Assessment: 21:46 General: Appears distressed, Behavior is cooperative. Pain: Complains of pain in left tm6 lower quadrant Pain radiates to lumbar area, left low back and right low back Pain currently is 10 out of 10 on a pain scale. Quality of pain is described as sharp, Pain began 2-3 days ago. Is continuous. Neuro: Level of Consciousness is awake, alert, obeys commands, Oriented to person, place, time, situation. Cardiovascular: Patient's skin is warm and dry. Respiratory: Airway is patent Respiratory effort is even, unlabored, Respiratory pattern is regular, symmetrical. GI: Abdomen is flat, non-distended, Bowel sounds present X 4 quads. Abd is soft Abdomen is tender to palpation in left lower quadrant Reports lower abdominal pain, upper abdominal pain. : No signs and/or symptoms were reported regarding the genitourinary system. EENT: No signs and/or symptoms were reported regarding the EENT system. Derm: No signs and/or symptoms reported regarding the dermatologic system. Musculoskeletal: Reports pain in back. 23:16 Reassessment: Patient and/or family updated on plan of care and expected duration. Pain tm6 level reassessed. Patient is alert, oriented x 3, equal unlabored respirations, skin warm/dry/pink. 01/30 00:30 Reassessment: Patient appears in no apparent distress at this time. Patient and/or tm6 family updated on plan of care and expected duration. Pain level reassessed. Patient is alert, oriented x 3, equal unlabored respirations, skin warm/dry/pink. 01:36 Reassessment: Patient appears in no apparent distress at this time. Patient and/or tm6 family updated on plan of care and expected duration. Pain level reassessed. Patient is alert, oriented x 3, equal unlabored respirations, skin warm/dry/pink. Vital Signs: 01/29 21:28 BP 174 / 106; Pulse 86; Resp 18; Temp 97.5; Pulse Ox 100% ; Weight 48.08 kg; Height 4 as6 ft. 11 in. ; Pain 8/10; 23:15 BP 168 / 100; Pulse 52; Pulse Ox 100% on R/A; Pain 10/10; tm6 01/30 00:29 BP 159 / 95; Pulse 95; Pulse Ox 98% on R/A; MAP 112 mmHg; Pain 5/10; tm6 01:35 BP 148 / 88; Pulse 87; Resp 19; Temp 97.5(TE); Pulse Ox 99% on R/A; Pain 3/10; tm6 08 21:28 Body Mass Index 21.41 (48.08 kg, 149.86 cm) as6 01/29 21:28 Pain Scale: Adult as6 23:15 Pain Scale: Adult tm6 01/30 00:29 Pain Scale: Adult tm6 01:35 Pain Scale: Adult tm6 ED Course: 01/29 21:06 Patient arrived in ED. gm2 21:11 Mariangel Madrigal PA-C is PHCP. sb4 21:11 Margareth Joseph MD is Attending Physician. sb4 21:29 Triage completed. as6 21:30 Arm band placed on. as6 21:40 Sue Ledezma, RN is Primary Nurse. tm6 21:42 Patient has correct armband on for positive identification. Placed in gown. Bed in low tm6 position. Call light in reach. Side rails up X 1. Provided Education on: use of call jackman. Client placed on continuous cardiac and pulse oximetry monitoring. NIBP monitoring applied. Pulse ox on. NIBP on. Door closed. Noise minimized. 21:59 Initial lab(s) drawn, by me, sent to lab. Urine collected: clean catch specimen, clear, jb4 haven colored. Inserted saline lock: 20 gauge in left antecubital area, using aseptic technique. Blood collected. 22:00 Lipase Sent. jb4 22:00 CMP Sent. jb4 22:00 CBC with Diff Sent. jb4 22:00 Urinalysis w/ reflexes Sent. jb4 23:19 CT Abd/Pelvis - IV Contrast Only In Process Unspecified. EDMS 01/30 00:29 Abdomen Limited US In Process Unspecified. EDMS 01:36 No provider procedures requiring assistance completed. IV discontinued, intact, tm6 bleeding controlled, No redness/swelling at site. Pressure dressing applied. Administered Medications: 01/29 22:11 Drug: NS 0.9% IV 1000 ml IV at 1 bolus Per protocol; 1000 mL bolus Route: IV; Rate: 1 jb4 bolus; Site: left antecubital; 22:20 Drug: HYDROmorphone IVP 0.5 mg IVP once Route: IVP; Site: left antecubital; tm6 22:21 Drug: Ondansetron IVP 4 mg IVP once; over 2 minutes Route: IVP; Site: left antecubital; tm6 23:24 Drug: HYDROmorphone IVP 1 mg IVP once Route: IVP; Site: right forearm; tm6 01/30 00:27 Drug: Rocephin IV 1 grams IV at calculated rate once; Given slow IV push per pharmacy tm6 instructions Route: IV; Rate: calculated rate; Site: left antecubital; Medication: 01/29 21:42 VIS not applicable for this client. tm6 Outcome: 01/30 01:30 Discharge ordered by MD. sb4 01:36 Discharged to home ambulatory, with family, tm6 01:36 Condition: stable 01:36 Discharge instructions given to patient, family, Instructed on discharge instructions, follow up and referral plans. medication usage, Demonstrated understanding of instructions, follow-up care, medications, Prescriptions given X 1, 01:36 Patient left the ED. tm6 Addendum: 02/03/2024 09:57 Addendum: Culture Results: Positive urine culture. No further action required. Bacteria h b sensitive to prescribed antibiotic. Signatures: Dispatcher [employer] EDMS Dorota Ortiz, GREGOR BUNDY James Timmons RN RN jb4 Slawson, Ashby, RN RN as6 Mariangel Madrigal PA-C PAEmperatriz Degroot 2 Sue Ledezma RN RN tm6
[2024-01-31 02:03] VITALS: TEMP 97.5
[2024-01-31 02:26] VITALS: BP 148/88; O2SAT 99
--- NOTE | 2024-01-31 11:55 | RAD REPORT ---
EXAM DESCRIPTION: CT - Abdomen Pelvis W Contrast - 01/31/2024 6:55 am CLINICAL HISTORY: The patient is 53 years old and is Female; FLANK PAIN TECHNIQUE: Axial computed tomography images of the abdomen and pelvis with intravenous contrast. S agittal and coronal reformatted images were created and reviewed. This CT exam was performed using one or more of the following dose reduction techniques: automated exposure control, adjustment of t he mA and/or kV according to patient size, and/or use of iterative reconstruction technique. COMPARISON: No relevant prior studies available. FINDINGS: LUNG BASES: Unremarkable. No mass. No consolidation. MEDIASTINUM: A small hiatal hernia is present. ABDOMEN: LIVER: Unremarkable. No mass. GALLBLADDER AND BILE DUCTS: The gallbladder is distended. Biliary dilatation is present with the common bile duct measuring up to 0.9 cm. No calcified gallstones are seen. PANCREAS: No ductal dilation. No mass. SPLEEN: Unremarkable. ADRENALS: Unremarkable. No mass. KIDNEYS AND URETERS: Peripheral wedge-shaped area of low attenuation involving the lower pole of the left kidney with mild adjacent perinephric stranding. The kidneys otherwise enhance symmetrically and are without hydronephrosis or hydroureter. STOMACH AND BOWEL: The stomach is not well-distended. The duodenal diverticula is noted without s urrounding inflammation. The small bowel is otherwise normal in caliber. A moderate amount of stool i s present throughout the colon. Scattered colonic diverticula are noted without surrounding inflammat ion. There is no mucosal thickening or evidence of obstruction. PELVIS: APPENDIX: The appendix is normal in caliber without surrounding inflammation. BLADDER: Unremarkable. No mass. REPRODUCTIVE: Unremarkable as visualized. ABDOMEN and PELVIS: INTRAPERITONEAL SPACE: Unremarkable. No free air. No significant fluid collection. BONES/JOINTS: Multilevel degenerative change of the lower lumbar spine is present. There is no ac [place] fracture. SOFT TISSUES: The soft tissues are normal. VASCULATURE: The vascular structures are normal in course and caliber and patent. No abdominal ao rtic aneurysm. LYMPH NODES: Unremarkable. No enlarged lymph nodes. IMPRESSION: 1. Area of peripheral wedge-shaped low attenuation involving the lower pole left kidne y with mild adjacent perinephric stranding. Focal pyelonephritis and/or renal infarct are within the differential. 2. Mild biliary dilatation. No calcified gallstones. Further evaluation with MRCP could be performe d. Electronically signed by: Marguerite Butler MD 01/31/2024 12:03 AM CDT RP Due to temporary technical issues with the PACS/Fluency reporting system, reports are being signed by the in house radiologist without review as a courtesy to ensure prompt reporting. The interpreting r adiologist is fully responsible for the content of the report.
--- NOTE | 2024-01-31 12:21 | RAD REPORT ---
EXAM DESCRIPTION: US - Abdomen Exam Limited - 01/31/2024 12:27 am CLINICAL HISTORY: Abdominal pain COMPARISON: US abdomen 04/23/2021 CT abdomen/pelvis 01/30/2024 TECHNIQUE: Grayscale, color Doppler, and duplex Doppler images of right upper abdomen. FINDINGS: No significant free fluid. Liver parenchyma is moderately hyperechoic. Main portal vein shows normal antegrade hepatopedal flow. Common bile duct measuring 4.7 mm diameter and within normal limits. No intra or extrahepatic biliary ductal dilatation. Gallbladder moderately dilated and otherwise unremarkable without evidence of stones or inflammation. Negative sonographic Chapin sign. IMPRESSION: Moderate hyperechoic liver parenchyma. Causes include fatty infiltration and/or hepatocellular disease. Electronically signed by: Matthew Pelayo MD 01/31/2024 01:42 AM CDT Due to temporary technical issues with the PACS/Fluency reporting system, reports are being signed by the in house radiologist without review as a courtesy to ensure prompt reporting. The interpreting r adiologist is fully responsible for the content of the report.
== END 2024-01-31 01:36 | disposition home or self-care (01) ==
LOC: ER 21:02
DX: N10 Acute pyelonephritis (principal); U07.1 COVID-19; F17.210 Nicotine dependence, cigarettes, uncomplicated; B19.20 Unspecified viral hepatitis C without hepatic coma; F90.9 Attention-deficit hyperactivity disorder, unspecified type; Z88.5 Allergy status to narcotic agent
CPT/HCPCS: 87088; 85025; 81001; 87086; 36415; 87077; 87186; 83690; 80053; 74177; 76705; 99284; Q9967; J1170 ×2; J2405; J7030; J0696